=== PATIENT | male | born 2000 | race Caucasian/White ===

== ENCOUNTER 2024-07-18 11:15 | Outpatient (AMB) | payer BC, SELFPAY ==
--- NOTE | 2024-07-18 11:34 | A.OFFPC_ITS ---
Vital Signs 07/18/24 11:36 Height 5 ft 11.06 in Weight 167 lb 4 oz BMI 23.3 BP 114/70 Blood Pressure Location Lt brachial Position Sitting Respiration 18 Pulse 68 Pulse Source Pulse Oximeter Temp 97.7 F Temp Source Temporal Artery Scan Pulse Oximetry (%) 98 Oxygen Delivery Method Room Air Intake Visit Reasons: establish care/oz peds Intake Note: Patient is a new patient here to establish care. Transferring care from [facility]. Medical records have not been requested and have not been received. Entry Level Sales Consultant Required: No Tank Refinisher: Not Required per policy Accompanied by: Self / Same As Patient Allergies No Known Allergies Allergy (Verified 07/18/24 11:52) Medication List - Last Reconciled 07/18/24 by Brody Zambrano PA-C No Known Home Meds Tobacco use date assessed: 07/18/24 Dental Screening Dental Screen Date: 07/18/24 Did you have a dental visit in the last 12 months?: Yes Did you have a dental problem in the last 6 months where you did not have access to dental care?: No Was dental information given to patient?: Patient has dentist HPI establish care/oz peds HPI Details Patient is a 23-year-old male here today for new patient visit. Previous PCP was at a pediatrics office. 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 Vaccine: Needs up-to-date tetanus vaccine though is considering at this time. [facility] Surgical History No pertinent past surgical history Family History Mother No problems noted. Father No problems noted. 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 1. Little interest or pleasure in doing things: not at all 2. Feeling down, depressed, or hopeless: not at all 3. Trouble falling or staying asleep, or sleeping too much: not at all 4. Feeling tired or having little energy: not at all 5. Poor appetite or overeating: not at all 6. Feeling bad about yourself - or that you are a failure or have let yourself or your family down: not at all 7. Trouble concentrating on things, such as reading the newspaper or watching television: not at all 8. Moving or speaking so slowly that other people could have noticed. Or the opposite - being so fidgety or restless that you have been moving around a lot more than usual: not at all 9. Thoughts that you would be better off or of hurting yourself in some way: not at all Total score: 0 Depression Screening Interpretation: Negative Depression Screening Done: Yes 63578 - PHQ-9 Billing: Yes Source: Developed by Drs. Poncho Whyte, Jeanne Mccarthy, Catracho Hsieh and colleagues, with an educational tree from [employer]. Thrive Questionnaire Date Thrive assessed: 07/18/24 I am a: Patient What is your living situation today?: I have a steady place to live Within the past 12 months, did the food you bought not last and you didn't have the money to get more?: Never true Within the past 12 months, did you worry whether your food would run out before you got money to buy more?: Never true Do you have trouble paying for medicines?: No Do you have trouble getting transportation to medical appointments?: No Do you have trouble paying your heating and electricity bill?: No Do you have trouble taking care of your child, family member or friend?: No Do you have trouble with day-to-day activities such as bathing, preparing meals, shopping, managing finances, etc.?: No Are you currently unemployed and looking for a job?: No Are you interested in more education?: No Please select the resources that you would like help with: None Currently or been in a relationship where the following occur: No concerns reported THRIVE Score: 0 AUDIT C Alcohol Use Questionnaire (AUDIT-C) 1. How often do you have a drink containing alcohol?: Never 3. How often do you have six or more drinks on one occasion?: Never Total Score: 0 ANN-7 AMB Questionnaire ANN-7 Date ANN - 7 assessed: 07/18/24 Feeling nervous, anxious, or on edge: 0 = Not at all Not being able to stop or control worryin = Not at all Worrying too much about different things: 0 = Not at all Trouble relaxin = Not at all Being so restless that it is hard to sit still: 0 = Not at all Becoming easily annoyed or irritable: 0 = Not at all Feeling afraid as if something awful might happen: 0 = Not at all Total ANN-7 score (0-4 normal; 5-9 mild; 10-14 moderate; 15-21 severe): 0 Source: Developed by Drs. Poncho Whyte, Jeanne Mccarthy, Catracho Hsieh and colleagues, with an educational tree from [employer]. ANN-7 Assessment Billing ANN-7 Assessment Tool: ANN-7 Assessment 92500 Review of Systems Const Denies headache(s) Eyes Denies loss of vision ENT Denies vertigo, Denies dizziness, Denies headache(s) and Denies sore throat Card Denies chest pain, Denies leg edema and Denies lightheadedness Resp Denies cough, Denies hemoptysis and Denies wheezing GI Denies abdominal pain, Denies melena, Denies constipation, Denies diarrhea and Denies vomiting Denies dysuria, Denies urinary frequency and Denies urinary urgency Musc Denies arthralgias, Denies joint swelling, Denies numbness and Denies tingling Neuro Denies Abnormal speech present, Denies behavioral changes, Denies vertigo, Denies dizziness, Denies headache(s), Denies loss of vision, Denies memory loss, Denies numbness and Denies tingling Psych Denies anxiety, Denies behavioral changes, Denies depression, Denies memory loss and Denies panic attacks Abner/Lymph Denies easy bleeding and Denies easy bruising Aller/Immun Denies wheezing Physical exam (Primary Care) Vital Signs: Last Vital Signs Temp 97.7 F 07/18/24 11:36 Pulse 68 07/18/24 11:36 Resp 18 07/18/24 11:36 BP 114/70 07/18/24 11:36 Pulse Ox 98 07/18/24 11:36 Oxygen Delivery Method Room Air 07/18/24 11:36 BMI result Body Mass Index 23.3 Tobacco/Smoking Status: Tobacco use Status Tobacco use date assessed 07/18/24 07/18/24 11:35 Patient Tobacco Use Status Never used Tobacco 07/18/24 11:55 e-Cigarette/Vaping Use Never Used 07/18/24 11:55 PHQ-9: PHQ-9 Score PHQ-9: Total score 0 07/18/24 11:58 Depression Screening Interpretation: Negative Thrive Assessment: Date of Thrive Assessment Date Thrive assessed 07/18/24 07/18/24 11:50 Currently or been in a relationship where the following occur: No concerns reported Const General: healthy appearing, no acute distress, alert and awake Nutritional Appearance: well nourished Orientation/consciousness: oriented to person, oriented to place and oriented to time HENMT Ears: TM's normal bilaterally General nose exam: Normal nasal mucous membranes and turbinates present Eyes Conjunctivae: conjunctivae normal Sclerae: sclerae normal Pupils: Equal, round and reactive pupils present Neck Neck: Yes no lymphadenopathy and Yes no JVD Thyroid: Thyroid normal Carotids: no bruits Resp Effort & Inspection: normal respiratory effort and not tachypneic Auscultation: no crackles, no rales, no rhonchi and no wheezes Cardio Rate: regular rate Rhythm: regular rhythm Heart sounds: no murmurs and normal S1 and S2 GI Palpation (GI): Soft to palpation, nontender, no hepatomegaly and no splenomegaly Auscultation: normal bowel sounds Skin General skin exam: no rashes or lesions noted and dry skin Neuro General: oriented to person, oriented to place and oriented to time Cranial nerves: Yes Equal, round and reactive pupils present Speech: No Abnormal speech present Gait exam (Neuro): Normal gait present Motor exam (neuro): no tremor noted Extrem Right upper extremity: full ROM Left upper extremity: full ROM Right lower extremity: full ROM; no edema Left lower extremity: full ROM; no edema Psych Mental Status: mental status grossly normal Speech and movement: Normal speech and movement present Affect: normal affect Attitude: cooperative Thought process: Normal thought process present Coding Level of Care Code New Pt Level 3 (95492) Diagnoses Color blindness H53.50 Screening for diabetes mellitus (DM) Z13.1 Additional Codes ANN-7 Assessment Billing - ANN-7 Assessment Tool: ANN-7 Assessment 97065 ([id number]) PHQ-9 - 42264 - PHQ-9 Billing: Yes ([id number]) Assessment & Plan Assessment & Plan (1) Color blindness: Code(s): H53.50 - Unspecified color vision deficiencies Category: Medical Plan: As per HPI (2) Screening for diabetes mellitus (DM): Code(s): Z13.1 - Encounter for screening for diabetes mellitus Category: Medical Plan: As per HPI
[2024-07-18 11:36] VITALS: BP 114/70; PULSE 68; RESP 18; TEMP 36.5; O2SAT 98; BMI 23.3
--- OUTSIDE RECORDS SUMMARY | 2024-07-18 13:48 | XMS_ITS | Encounter Summary ---
Author Organization [facility] Address [address] [place] [phone] Phone Care Team Providers Care Belting Cutter Name Role Phone Liberty Harris MD Primary Care Provider [phone] Encounter Details Date Type Department Care Team (Late st Contact Info) Description 08/14/2013 Documentation [facility] [place] Family Medicine [address] [place] [address] Family Medicine, Physician [address] [place], [place] [id number] Social History Tobacco Use Types Packs/Day Years Used Date Smoking Tobacco: Never Assessed Sex and Gender Information Value Date Recorded Sex Assigned at Male 05/30/2019 10:43 AM EST Legal Sex Male 4:55 PM EDT Gender Identity Male 05/30/2019 10:43 AM EST Sexual Orientation Straight 05/30/2019 10 :43 AM EST documented as of this encounter Plan of Treatment Not on file documented as of this encounter Visit Diagnoses Not on filedocumented in this encounter Care Teams Belting Cutter Relationship Specialty Start Date End Date Liberty Harris MD [address] [place] [id number] PCP - General Pediatrics 01/10/19 07/11/23 documented as of this encounter
--- OUTSIDE RECORDS SUMMARY | 2024-07-18 13:48 | XMS_ITS | Encounter Summary ---
Author Organization [facility] Address [address] [place] [id number] Phone Care Team Providers Care Biofuels Production Manager Name Role Phone Liberty Harris MD Primary Care Provider [phone] Encounter Details Date Type Department Care Team (Late st Contact Info) Description 12/29/2016 Conversion Encounter [facility] [address] [place] [address] Social History Tobacco Use Types Packs/Day Years [...] on filedocumented in this encounter Care Teams Biofuels Production Manager Relationship Specialty Start Date End Date Liberty Harris MD [address] [place] [address] PCP - General Pediatrics 01/10/19 07/11/23 documented as of this encounter
--- OUTSIDE RECORDS SUMMARY | 2024-07-18 13:48 | XMS_ITS | Encounter Summary ---
Author Organization [facility] Address [address] [place] [phone] Phone Care Team Providers Care 7Th Grade Social Studies Teacher Name Role Phone Liberty Harris MD Primary Care Provider [phone] Encounter Details Date Type Department Care Team (Late st Contact Info) Description 10/27/2009 Documentation [facility] [place] Family Medicine [address] [place] [address] Family Medicine, Physician [address] [id number] Social History Tobacco Use Types Packs/Day Years [...] on filedocumented in this encounter Care Teams 7Th Grade Social Studies Teacher Relationship Specialty Start Date End Date Liberty Harris MD [address] [place] [id number] PCP - General Pediatrics 01/10/19 07/11/23 documented as of this encounter
--- OUTSIDE RECORDS SUMMARY | 2024-07-18 13:48 | XMS_ITS | Clinical Summary ---
Author Organization [facility] Address [address] [place] [phone] Phone Care Team Providers Care Heading Saw Operator Name Role Phone Unavailable Primary Care Provider Unavailabl e Allergies No known active allergies Medications No known medications Active Problems Problem Noted Date Diagnosed Date History of 2019 novel coronavirus disease (COVID -19) 01/01/2021 Overview (01/01/2021): 06/04 Immunizations Immunization Administration Dates Next Due DTaP 5 09/18/2006, 4,03/14/2003,01/09,2002 HPV Vaccine 9 Valent 12/02/2019,07/22/2019,05/30 Hep A, ped/adol 09/22/2014,08/20/2013 Hep B, ped/adol 06/12/2003,2002,2002 Hib (PRP-T) 12/11/2003, 3,01/09/2003,10/28 IPV 02/26/2007, 7,02/27/2004,06/12,01/09/2003,2002 Influenza, injectable, quadr ivalent, preservative free 05/30/2019,06/25/2018 MMR 09/18/2006,09/03/2003 MMRV 09/18/2006 Meningococcal Conj (Menactra) MCV4P 05/30/2019,0 09/22/2014 Pneumococcal Conjugate 03/14/2003,01/09/2003, Tdap 09/22/2014 Varicella 09/18/2006,09/03/2003 Family History Relation Name Status Comments Brother Alive Brother: Alive and well Father Alive Father: Alive a nd well Mother Alive Mother: Alive a nd well Other Family history of Diabetes mellitus, Family history of Hypertension Social History Tobacco Use Types Packs/Day Years Used Date Smoking Tobacco: Never Assessed Hunger/Food Answer Date Recorded In the last 12 months, did y ou or your family ever eat less than you felt you should because there wasn't enough money for food? No 05/30/2019 Stable Housing Answer Date Recorded Are you worried that in the next 2 months you may not have stable housing? No 05/30/2019 Transportation Concerns Answer Date Rec orded In the last 12 months, have you or your family ever had to go without healthcare because you didn't have a way to get there? No 05/30/2019 Hazards in Home Answer Date Recorded Think about the place you li ve. Do you have problems with any of the following? Pests (mice or roaches), mold, no/not working smoke detectors, water leaks, no window guards. No 2019 Financing Utilities Answer Date Recorde d In the last 12 months, has t he electric, gas, oil, or water company threatened to shut off your services in your home? No 05/30/2019 Safety at Home Answer Date Recorded Are you or your family worried about feeling saf e in your home? No 05/30/2019 Outside Support Answer Date Recorded Do you feel that you need mo re support from other people or programs to help you care for yourself or your family? No 05/30/2019 Understanding Health Concerns Answer Da te Recorded Do you need help understandi ng your or your child's healthcare needs (diagnosis, medications, plan, etc.)? No 05/30/2019 Financing Health Concerns Answer Date R ecorded In the last 12 months, was t here a time when your child needed to see a doctor or get medications or supplies but could not because of cost? No 05/30/2019 Missing School or Work Answer Date Cal rded Did you or your child miss s chool or work because of a health problem that could have been avoided? No 05/30/2019 Sex and Gender Information Value Date Recorded Sex Assigned at Male 05/30/2019 10:43 AM EST Legal Sex Male 4:55 PM EDT Gender Identity Male 05/30/2019 10:43 AM EST Sexual Orientation Straight 05/30/2019 10 :43 AM EST Last Filed Vital Signs Vital Sign Reading Time Taken Comments Blood Pressure 111/70 01/04/2021 9:43 AM EDT Pulse 103 01/04/2021 9:43 AM EDT Temperature 37.6 ??C (99.7 ??F) 01/04/2021 9:43 AM ED T Respiratory Rate 20 05/30/2019 10:04 AM EST Oxygen Saturation - - Inhaled Oxygen Concentration - - Weight 73.5 kg (162 lb) 01/04/2021 9:43 AM EDT Height 177.8 cm (5' 10 ) 01/04/2021 9:43 AM EDT Body Mass Index 23.24 01/04/2021 9:43 AM EDT Plan of Treatment Health Maintenance Due Date Last Done Comments Men B Vaccine (1 of 2 - Standard) 2018 Influenza Vaccines (#1) 2023 05/30/2019, 06/25 COVID-19 Vaccine ( season) 2024 DTaP,Tdap,and Td Vaccines (7 - Td or Tdap) 09/22/2024 09/22/2014, 09/18/2006, 12/11/2003, Additional history exists Pneumococcal Vaccine Aged Out 03/14/2003, 01/09/2003, 2002 No longer eligible based on patient's age to complete this topic Hepatitis B Vaccines Completed 06/12/2003, 2002, 2002 HIB Vaccines Completed 12/11/2003, 02/14, 01/09/2003, Additional history exists MMR Vaccines Completed 09/18/2006, 11/2006, 09/03/2003 Varicella Vaccines Completed 09/18/2006, 0 09/18/2006, 09/03/2003 IPV Vaccines Completed 02/26/2007, 11/2006, 02/27/2004, Additional history exists Hepatitis A Vaccines Completed 09/22/2014, 08/21/19 14 Meningococcal Vaccine Completed 05/30/2019, 015 HPV Vaccines Completed 12/02/2019, 01/2020, 05/30/2019 Insurance [facility]
== END 2024-07-18 12:04 | disposition home or self-care (01) ==
PROVIDERS: Visit Provider Physician Assistant
DX: H53.50 Unspecified color vision deficiencies (principal); Z13.1 Encounter for screening for diabetes mellitus

== ENCOUNTER → 2024-07-18 11:15 | Outpatient (BNVA) | payer BC, SELFPAY | PROVIDERS: Visit Provider Physician Assistant | DX: H53.50 Unspecified color vision deficiencies (principal) | CPT/HCPCS: 96127 ==